=== PATIENT | male | born 2000 | race Hispanic/Latino ===

== ENCOUNTER 2022-12-03 01:21 | Emergency (ER) | payer SELFPAY ==
[2022-12-03 02:17] LABS: Bilirubin Neg (Negative); Blood, Urine Negative (Negative); Clarity Clear (Clear); Glucose, Urine (Dipstick) Normal (Negative); Ketone, Urine Negative (Negative); Leukocyte Negative (Negative); Nitrite Negative (Negative); Protein, Urine (Dipstick) Negative (Neg-Trace); Urobilinogen Normal mg/dL (Less than 2)
[2022-12-03 02:30] LABS: Bacteria/HPF None Seen HPF (None Seen); CAUTI Indications for Culture Dysuria,urgency,freq; RBC/HPF None Seen HPF (0-3); Squamous Epithelial None Seen HPF (0-3); WBC/HPF None Seen HPF (0-3)
[2022-12-03 02:31] LABS: Urine Culture Reflex No No
== END 2022-12-03 02:36 | disposition home or self-care (01) ==
LOC: CSHERS 01:21
DX: F41.0 Panic disorder [episodic paroxysmal anxiety] (principal)
CPT/HCPCS: 36416; 81001; 99284

== ENCOUNTER 2023-01-18 20:20 | Emergency (ER) | payer SELFPAY ==
[2023-01-18 21:13] LABS: Bilirubin Neg (Negative); Blood, Urine Negative (Negative); Clarity Clear (Clear); Glucose, Urine (Dipstick) Normal (Negative); Ketone, Urine 15 mg/dL (Negative); Leukocyte Negative (Negative); Nitrite Negative (Negative); Protein, Urine (Dipstick) 15 mg/dl (Neg-Trace); Specific Gravity, Urine 1.015 (1.005-1.030); Urobilinogen Normal mg/dL (Less than 2)
[2023-01-18 21:23] LABS: Bacteria/HPF Rare-Few HPF (None Seen); CAUTI Indications for Culture Pelvic or flank pain; RBC/HPF None Seen HPF (0-3); Squamous Epithelial 0-3 HPF (0-3); WBC/HPF 0-3 HPF (0-3)
[2023-01-18 21:24] LABS: Urine Culture Reflex No No
== END 2023-01-18 22:02 | disposition home or self-care (01) ==
LOC: CSHERS 20:20
DX: R07.9 Chest pain, unspecified (principal)
CPT/HCPCS: 71045; 81001; 93005

== ENCOUNTER 2023-03-04 16:35 | Emergency (ER) | payer SELFPAY ==
[2023-03-04] MEDS ORDERED: Meclizine HCl 25 MG TAB ONE (18:16)
[2023-03-04] MEDS ORDERED: Ketorolac Tromethamine 30 MG/ML VIAL ONE (18:16)
== END 2023-03-04 19:57 | disposition home or self-care (01) ==
LOC: CSHERS 16:35
DX: R42 Dizziness and giddiness (principal); L23.7 Allergic contact dermatitis due to plants, except food
CPT/HCPCS: 93005; 96372; J1885

== ENCOUNTER 2023-03-31 01:23 | Emergency (ER) | payer SELFPAY | END 2023-03-31 01:52 | disposition home or self-care (01) | LOC: CSHERS 01:23 | DX: S50.811A Abrasion of right forearm, initial encounter (principal); W55.03XA Scratched by cat, initial encounter | CPT/HCPCS: 99283 ==

== ENCOUNTER 2023-04-09 23:47 | Emergency (ER) | payer SELFPAY ==
[2023-04-10 01:27] LABS: SARS-CoV-2 NAA Rapid Test Not Detected (NotDetected)
== END 2023-04-10 01:43 | disposition home or self-care (01) ==
LOC: CSHERS 23:47
DX: J02.9 Acute pharyngitis, unspecified (principal)
CPT/HCPCS: 87081; 87430; 99283

== ENCOUNTER 2023-05-24 21:17 | Emergency (ER) | payer SELFPAY | END 2023-05-24 23:31 | disposition home or self-care (01) | LOC: CSHERS 21:17 | DX: R00.2 Palpitations (principal) | CPT/HCPCS: 93005 ==

== ENCOUNTER 2023-08-11 12:53 | Emergency (ER) | payer OTHER | END 2023-08-11 13:36 | disposition home or self-care (01) | LOC: CSHERS 12:53 | DX: L25.9 Unspecified contact dermatitis, unspecified cause (principal) | CPT/HCPCS: 99283 ==

== ENCOUNTER 2023-10-08 16:02 | Emergency (ER) | payer OTHER | END 2023-10-08 16:33 | disposition home or self-care (01) | LOC: CSHERS 16:02 | DX: M77.8 Other enthesopathies, not elsewhere classified (principal); Z55.6 Problems related to health literacy | CPT/HCPCS: 99283 ==

== ENCOUNTER 2023-12-08 07:44 | Emergency (ER) | payer OTHER, SELFPAY ==
[2023-12-08] MEDS ORDERED: Ibuprofen 200 MG TAB ONE (08:10)
== END 2023-12-08 08:47 | disposition home or self-care (01) ==
LOC: CSHERS 07:44
DX: M25.571 Pain in right ankle and joints of right foot (principal)
CPT/HCPCS: 99283

== ENCOUNTER 2024-04-11 17:33 | Emergency (ER) | payer SELFPAY | END 2024-04-11 19:11 | disposition home or self-care (01) | LOC: CSHERS 17:33 | DX: R22.41 Localized swelling, mass and lump, right lower limb (principal) ==

== ENCOUNTER 2024-11-16 11:51 | Emergency (ER) | payer OTHER, SELFPAY ==
[2024-11-16] MEDS ORDERED: Ibuprofen 200 MG TAB ONE (13:34)
[2024-11-16] MEDS ORDERED: Dexamethasone 10 MG/ML VIAL ONE (13:44)
== END 2024-11-16 14:03 | disposition home or self-care (01) ==
LOC: CSHERS 11:51
DX: J03.90 Acute tonsillitis, unspecified (principal)
CPT/HCPCS: 87081; 87428; 87430; J1100

== ENCOUNTER 2024-12-23 12:21 | Emergency (ER) | payer SELFPAY ==
[2024-12-23] MEDS ORDERED: Amoxicillin/Potassium Clav 875 MG TAB ONE (13:11)
[2024-12-23] MEDS ORDERED: Ibuprofen 200 MG TAB ONE (13:11)
== END 2024-12-23 13:10 | disposition home or self-care (01) ==
LOC: CSHERS 12:21
DX: K04.01 Reversible pulpitis (principal); K02.9 Dental caries, unspecified
CPT/HCPCS: 99282

== ENCOUNTER 2025-02-28 18:33 | Emergency (ER) | payer OTHER, SELFPAY ==
[2025-02-28] MEDS ORDERED: Ibuprofen 200 MG TAB ONE (20:11)
[2025-02-28] MEDS ORDERED: Amoxicillin/Potassium Clav 875 MG TAB ONE (20:11)
== END 2025-02-28 20:31 | disposition home or self-care (01) ==
LOC: CSHERS 18:33
DX: H66.91 Otitis media, unspecified, right ear (principal); H73.91 Unspecified disorder of tympanic membrane, right ear
CPT/HCPCS: 99282